=== PATIENT | male | born 1975 | race Hispanic/Latino ===

== ENCOUNTER 2017-04-02 01:51 | Emergency (ER) | payer BC, OTHER ==
[2017-04-02 02:18] VITALS: BP 133/87; PULSE 64; RESP 16; TEMP 98; O2SAT 100
[2017-04-02] MEDS ORDERED: Sodium Chloride 0.9% 1,000 ML IV STA (02:28)
[2017-04-02 02:59] LABS: BASO % 0.4 % (0.0-2.0); EOS # 0.2 K/uL (0.0-0.7); EOS % 2.8 % (0.0-4.0); HEMATOCRIT 42.6 % (35.0-51.0); LYMPH % 22.8 % (20.0-40.0); MEAN CORPUSCULAR HEMOGLOBIN 33.2 pg (27.0-31.0); MEAN CORPUSCULAR HGB CONC 33.8 g/dL (33.0-37.0); MEAN PLATELET VOLUME 9.5 fl (7.2-11.7); MONO # 0.9 K/uL (0.0-0.8); MONO % 10.5 % (0.0-10.0); NEUT # 5.7 K/uL (1.8-7.0); NEUT % 63.5 % (50.0-75.0); NRBC % 0.1 % (0.0-0.0); RED CELL DISTRIBUTION WIDTH 13.8 % (11.5-14.5); WHITE BLOOD COUNT 8.9 K/uL (4.8-10.8)
[2017-04-02 03:06] LABS: PARTIAL THROMBOPLASTIN TIME 28.8 Seconds (25.6-37.1)
--- NOTE | 2017-04-02 03:07 | ED PDOC ---
HPI: Hypertension/Hypotension Time Seen by Provider: 04/02/17 02:19 Chief Complaint (Nursing): Palpitations Chief Complaint (Provider): Palpitations History Per: Patient History/Exam Limitations: no limitations Onset/Duration Of Symptoms: Hrs (x2) Current Symptoms Are (Timing): Still Present Associated Symptoms: denies: Chest Pain Quality Of Symptoms: Rapid Heart Rate Additional Complaint(s): 41 year old male presents to ED with complaints of palpitations x2 hours and has a past medical history of mitral valve prolapse and palpitations. Describes the palpitations as his "heart racing". (-) chest pain, nausea, vomiting, or diaphoresis. Admits moderate alcohol usage tonight, but denies drug or tobacco use. 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 Denies using caffeinated compounds. PCP: None Past Medical History Reviewed: Historical Data, Nursing Documentation, Vital Signs Vital Signs: Last Vital Signs Temp 98.0 F 04/02/17 02:15 Pulse 64 04/02/17 02:15 Resp 16 04/02/17 02:15 BP 133/87 04/02/17 02:15 Pulse Ox 100 04/02/17 02:15 - Medical History PMH: Back Problems, Bronchitis, HTN Other PMH: Palpitaitons, mitral valve prolapse - Surgical History Surgical History: No Surg Hx - Family History Family History: States: No Known Family Hx - Social History Current smoker - smoking cessation education provided: No Ex-Smoker (has not smoked in the last 12 months): No Alcohol: Occasional Drugs: Denies - Home Medications Home Medications: Ambulatory Orders Medication Instructions Recorded Clindamycin [Cleocin] 300 mg PO TID #30 cap 11/07/16 Mupirocin 2% Ointment [Bactroban 22 applic EXT TID #1 tube 11/07/16 Ointment] - Allergies Allergies/Adverse Reactions: Allergies Allergy/AdvReac Type Severity Reaction Status Date / Time No Known Allergies Allergy Verified 11/07/16 15:55 Review of Systems ROS Statement: Except As Marked, All Systems Reviewed And Found Negative Constitutional: Negative for: Sweats Cardiovascular: Positive for: Palpitations. Negative for: Chest Pain Gastrointestinal: Negative for: Nausea, Vomiting Physical Exam - Reviewed Nursing Documentation Reviewed: Yes Vital Signs Reviewed: Yes - Physical Exam Appears: Positive for: Non-toxic, No Acute Distress Head Exam: Positive for: ATRAUMATIC Skin: Positive for: Normal Color, Warm, Dry Eye Exam: Positive for: Normal appearance ENT: Positive for: Normal ENT Inspection Cardiovascular/Chest: Positive for: Regular Rate, Rhythm. Negative for: Murmur Respiratory: Positive for: Normal Breath Sounds. Negative for: Respiratory Distress Gastrointestinal/Abdominal: Positive for: Normal Exam, Soft. Negative for: Tenderness Extremity: Positive for: Normal ROM. Negative for: Deformity Neurologic/Psych: Positive for: Alert, Oriented. Negative for: Motor/Sensory Deficits - Laboratory Results Result Diagrams: 04/02/17 02:53 04/02/17 02:53 - ECG O2 Sat by Pulse Oximetry: 100 (RA) Pulse Ox Interpretation: Normal Medical Decision Making Medical Decision Makin Initial impression: palpitations in setting of known mitral valve prolapse Initial plan: * EKG * EtOH serum * Labs * UDrug screen * TSH * PTT/PT * NS IV * UA 0320 Vitals steady, patient comfortable. 0400 Labs reviewed: no clinically significant abnormalities Patient is medically stable for discharge home. Patient will follow up with computer operations analyst in 1-2 days. Dx: palpitations Condition: stable Scribe Attestation: Documented by Rama Coats acting as a scribe for Alirio Anderson MD. Scribe Attestation: All medical record entries made by the Scribe were at my direction and personally dictated by me. I have reviewed the chart and agree that the record accurately reflects my personal performance of the history, physical exam, medical decision making, and the department course for this patient. I have also personally directed, reviewed, and agree with the discharge instructions and disposition. Disposition - Clinical Impression Clinical Impression: Palpitations - Patient ED Disposition Is Patient to be Admitted: No - Disposition Disposition: Routine/Home Disposition Time: 04:00 Condition: STABLE Instructions: Palpitations (ED)
[2017-04-02 03:09] LABS: ALB/GLOB RATIO 1.4 (1.0-2.1); ALCOHOL SERUM 11 mg/dl (0-10); ALKALINE PHOSPHATASE 47 U/L (38-126); ALT/SGPT 51 U/L (21-72); AST/SGOT 45 U/L (17-59); BILIRUBIN,TOTAL 0.5 mg/dl (0.2-1.3); BLOOD UREA NITROGEN 12 mg/dl (9-20); CALCIUM 9.8 mg/dL (8.4-10.2); CARBON DIOXIDE 29 mmol/L (22-30); CHLORIDE 100 mmol/L (98-107); GFR AFRICAN-AMERICAN > 60; GLUCOSE,RANDOM 93 mg/dL (75-110); POTASSIUM 4.5 MMOL/L (3.6-5.0); SODIUM 140 mmol/l (132-148); TOTAL PROTEIN 7.7 G/DL (6.3-8.2)
[2017-04-02 03:37] LABS: THYROID STIMULATING HORMONE 3.33 mIU/ML (0.46-4.68)
[2017-04-02 04:27] LABS: RBC URINE 2 /hpf (0-3); URINE BILIRUBIN NEGATIVE (NEGATIVE); URINE BLOOD NEGATIVE (NEGATIVE); URINE COLOR STRAW (YELLOW); URINE GLUCOSE (UA) NEG (Normal); URINE KETONE NEGATIVE (NEGATIVE); URINE LEUKOCYTE ESTERASE NEG Leu/uL (Negative); URINE PROTEIN NEGATIVE (NEGATIVE); URINE UROBILINOGEN 0.2-1.0 mg/dL (0.2-1.0); WBC URINE < 1 /hpf (0-5)
--- NOTE | 2017-04-02 17:33 | CARD ---
APPROVED REPORT EKG Measurement Heart [id number] <Conclusion> Normal sinus rhythm Normal ECG
== END 2017-04-02 05:27 | disposition home or self-care (01) ==
LOC: H.ER 01:51
DX: R00.2 Palpitations (principal); I10 Essential (primary) hypertension; I34.1 Nonrheumatic mitral (valve) prolapse; Z87.891 Personal history of nicotine dependence
CPT/HCPCS: 80053; 81003; 84443; 85025; 85610; 85730; 93005; 96360; 99283; G0480; J7040